=== PATIENT | female | born 1960 | race Caucasian/White ===

== ENCOUNTER 2018-11-25 11:30 | Day surgery (SDC) | payer OTHER ==
[2018-11-25] MEDS ORDERED: MIDAZOLAM 1 MG/ML 2 ML INJ ×2 (16:28→16:29)
[2018-11-25] MEDS ORDERED: FENTAnyl 50 MCG/ML VIAL (16:29)
== END 2018-11-25 14:25 | disposition home or self-care (01) ==
LOC: GIL 11:30
DX: Z12.11 Encounter for screening for malignant neoplasm of colon (principal); K64.8 Other hemorrhoids; K57.30 Diverticulosis of large intestine without perforation or abscess without bleeding
CPT/HCPCS: 45378